=== PATIENT | female | born 1990 | race Caucasian/White ===

== ENCOUNTER → 2020-12-29 | Outpatient (REF) | payer OTHER ==
[2020-12-29 18:07] LABS: HEMATOCRIT 37.3 % (36.0-47.0); HEMOGLOBIN 12.1 g/dl (12.0-15.5); MEAN CORPUSCULAR HEMOGLOBIN 31.3 pg (27.0-33.0); MEAN CORPUSCULAR HGB CONC 32.4 g/dl (32.0-36.5); MEAN CORPUSCULAR VOLUME 96.4 fl (80.0-96.0); PLATELET COUNT, AUTOMATED 270 10^3/uL (150-450); RED BLOOD COUNT 3.87 10^6/uL (4.00-5.40); WHITE BLOOD COUNT 11.4 10^3/uL (4.0-10.0)
[2020-12-31 06:20] LABS: HIV 1&2 SCREEN CENTAUR NEGATIVE (NEGATIVE)
== END ==
LOC: M PLALAB 15:31
PROVIDERS: ATTEND Advanced Practice Midwife
DX: Z34.01 Encounter for supervision of normal first pregnancy, first trimester (principal)

== ENCOUNTER → 2021-02-25 | Outpatient (CLI) | payer OTHER ==
--- NOTE | 2021-02-26 08:14 | REP ---
INDICATION: ANATOMY COMPARISON: None. TECHNIQUE: Transabdominal obstetrical ultrasound with color Doppler evaluation. FINDINGS: Examination demonstrates a single live intrauterine in breech presentation. motion is identified by technologist. Placenta is noted anterior and grade 1 without evidence for placenta previa or abruption. Amniotic fluid volume is normal. Cervix measures 4.2 cm in length and appears closed.. Gestational age by LMP 19 weeks 3 days with HENRIQUE 07/19/2021. Gestational age by current measurements 19 weeks 2 days with HENRIQUE is 07/20/2021. FHR equals beats per minute. BPD: 4.5 cm at 19 weeks 3 days HC: 16.9 cm at 19 weeks 4 days AC: 13.8 cm at 19 weeks 2 days FL: 3.0 cm at 19 weeks 2 days HL: 2.9 cm at 19 weeks 2 days HC/AC: 1.22 Estimated weight 283 grams (37thpercentile). Anatomical assessment demonstrates normal structures including cranium, choroid plexus, cavum, cerebellum/posterior fossa, facial features, lungs, four-chamber heart/ventricular outflow tracts, diaphragm, stomach, cord insertion/three-vessel cord, kidneys/bladder, spine, and extremities. IMPRESSION: Single live intrauterine in breech presentation demonstrating appropriate interval growth. Anatomical assessment is complete and normal. <Electronically signed by Zack Angela > 02/26/21 [id number]
== END ==
LOC: M WHC 14:27
PROVIDERS: ATTEND Advanced Practice Midwife
DX: Z36.9 Encounter for antenatal screening, unspecified (principal); Z3A.19 19 weeks gestation of pregnancy

== ENCOUNTER → 2021-04-29 | Outpatient (CLI) | payer OTHER ==
[2021-04-29 13:55] LABS: HEMATOCRIT 35.4 % (36.0-47.0); HEMOGLOBIN 11.5 g/dl (12.0-15.5); MEAN CORPUSCULAR HEMOGLOBIN 32.8 pg (27.0-33.0); MEAN CORPUSCULAR HGB CONC 32.5 g/dl (32.0-36.5); MEAN CORPUSCULAR VOLUME 100.9 fl (80.0-96.0); PLATELET COUNT, AUTOMATED 239 10^3/uL (150-450); RED BLOOD COUNT 3.51 10^6/uL (4.00-5.40); WHITE BLOOD COUNT 9.6 10^3/uL (4.0-10.0)
== END ==
LOC: M PLALAB 08:40
PROVIDERS: ATTEND Advanced Practice Midwife
DX: Z34.02 Encounter for supervision of normal first pregnancy, second trimester (principal)

== ENCOUNTER → 2021-06-25 | Outpatient (REF) | payer OTHER ==
[~2021-06-25] MED LIST: PRENTAB9 PO
== END ==
LOC: M SFHCWAGY 16:52
PROVIDERS: ATTEND Advanced Practice Midwife
DX: Z34.03 Encounter for supervision of normal first pregnancy, third trimester (principal)

== ENCOUNTER 2021-07-23 21:34 | Inpatient (IN) | payer OTHER ==
[~2021-07-23] VITALS: Ht 167.6 cm; Wt 91.5 kg
[2021-07-23] MEDS ORDERED: PRENTAB9 PO (22:03)
[2021-07-23] MEDS ORDERED: HOME MED LIST COMPLETE! XX SCH (22:05)
[2021-07-23 22:26] LABS: HEMATOCRIT 36.4 % (36.0-47.0); HEMOGLOBIN 12.2 g/dl (12.0-15.5); MEAN CORPUSCULAR HEMOGLOBIN 32.8 pg (27.0-33.0); MEAN CORPUSCULAR HGB CONC 33.5 g/dl (32.0-36.5); MEAN CORPUSCULAR VOLUME 97.8 fl (80.0-96.0); PLATELET COUNT, AUTOMATED 243 10^3/uL (150-450); RED BLOOD COUNT 3.72 10^6/uL (4.00-5.40); WHITE BLOOD COUNT 11.3 10^3/uL (4.0-10.0)
[2021-07-23 22:37] VITALS: BP 120/71
[2021-07-23] MEDS ORDERED: OXYTOCIN DRIP 30 UNITS in IV 1 EA IV SCH (23:05)
[2021-07-23] MEDS ORDERED: CARBOPROST TROMETHAMINE 250 MCG/ML AMP IM PRN (23:05)
[2021-07-23] MEDS ORDERED: METHYLERGONOVINE MALEATE 0.2 MG/ML VIAL (J2210) IM PRN (23:05)
[2021-07-23] MEDS ORDERED: TRANEXAMIC ACID INJection 1,000 MG in NS 100 ML IV PRN (23:05)
--- NOTE | 2021-07-23 23:14 | HPEPDOC ---
Obstetrical History & Physical General Date of Admission Jul 23, 2021 at 21:34 History of Present Illness Patient is a 31-year-old G1, P0 at 40 weeks and 4 days who presents to labor and delivery for elective induction of labor. Patient currently denies any contractions leaking of fluid or vaginal bleeding. Reports positive movement Chief Complaint: Induction of labor Information Provided By: Patient Age: 31 : 1 Term: 0 Care Care: Good Care Dating Final EDC: Jul 19, 2021 Past Medical History Past Obstetrical History : Past Obstetrical History: Primgravida [employer] History: No pertinent history Past Medical History Surgical History: Denies/None Family History Significant Family History: No pertinent family hx Social History Family situation: Spouse/partner home Psychosocial History: No pertinent psych hx * Smoker: non-smoker Alcohol: Denies Drugs: denies Abuse Violence Screening Have you been hit/kicked/slapp: No Have you been sexually assault: No Imunizations Tdap status: current Influenza Status: needs Allergies Coded Allergies: No Known Allergies (Unverified , 07/23/21) Medications Scheduled No.137/Iron/Folic Acd ( Vitamin Tablet) 1 Each Tablet, 1 TAB PO DAILY Physical Examination Physical Examination GENERAL: Alert and oriented times three. BREAST: . ABDOMEN: Gravid and non-tender to touch. FETUS: Is vertex (VTX) by bedside ultrasound HEART RATE: Regular rate and rhythm. LUNGS: Clear to auscultation (CTA). EXTREMITIES: No edema. No clonus. SVE: 3/50/-2 Vital Signs/I&O Vital Signs Date Time Temp Pulse Resp B/P (MAP) Pulse Ox O2 Delivery O2 Flow Rate FiO2 07/23/21 22:37 98.3 80 18 120/71 (87) Laboratory Data 24H LABS Laboratory Tests 2 07/23/21 21:58: Serology Scanned Report Hepatitis B Testing 07/23/21 22:20: Nucleated Red Blood Cells % (auto) 0.0 CBC/BMP Laboratory Tests 07/23/21 22:20 Pertinent Laboratoy Data Blood Type: A+ RBC Antibody Screen: Negative HIV: Negative Hepatitis B: Negative Hepatitis C: Negative Rapid Plasma Reagin: Nonreactive Rubella: Immune Chlamydia/Gonorrhea: Negative Group B Streptococcus: Negative Glucose Tolerance Test: 84 Vaginal Examination Dilation: 3 cm Effacement: 50% Station: -2 Cervical Consistency: Medium Cervical Position: Middle Presentation: Cephalic presentation Assessment Heart Rate (FHR): 125 Variability: Moderate Accelerations: Positive Decelerations: None Tocometer Frequency: irregular Assessment/Plan Assessment 31-year-old (G) 1 para (P) 0 at 40+ 4 weeks Presents to Labor and Delivery (L&D) for elective induction of labor. Plan Admit and orient. Painting Instructor and consent. Diet: Clear liquid. Group B Streptococcus (GBS) [negative]. Labs and intravenous (IV) per unit protocol. Counseled on Pitocin and induction of labor (IOL). Anticipate [normal spontaneous delivery ()]. C-S as appropriate. JORGE GATES MD Jul 23, 2021 23:14
[2021-07-23] MEDS: LR 1,000 ML IV SCH (23:41)
[2021-07-23 23:45] VITALS: BP 118/68
[2021-07-24] VITALS (47 sets, daily range): BP systolic 95–158; BP diastolic 52–87
--- NOTE | 2021-07-24 07:06 | IPNPDOC ---
Obstetrical Progress Note Date of Service Jul 24, 2021 Subjective Pt starting to feel ctx, still comfortable at this time Objective Vital Signs Date Time Temp Pulse Resp B/P (MAP) Pulse Ox O2 Delivery O2 Flow Rate FiO2 07/24/21 07:00 68 18 127/81 (96) 07/24/21 03:33 98.4 Assessment Heart Rate (FHR): 120 Variability: Moderate Accelerations: Positive Decelerations: None Heart Rate Tracing: Category I Tocometer Contractions: Yes Frequency: every 1-3 min. Sterile Vaginal Examination Dilation: 4 cm Effacement (%): 50% Station: -1 Cervical Consistency: Soft Cervical Position: Anterior Postion/Presentation: Cephalic presentation Assessment and Plan Age: 31 : 1 Term: 0 Status: Reassuring Group B Streptococcus: Negative Anticipate: Vaginal Delivery (AROM for clear at this time) JOREG GATES MD Jul 24, 2021 07:06
[2021-07-24] MEDS ORDERED: FENTANYL 2MCG/ML ROPIVACAINE 0.2% IN 0.9% NACL 100ML IVBAG As Ordered ONE (07:12)
[2021-07-24] MEDS: LR 1,000 ML IV SCH (07:33)
[2021-07-24] MEDS ORDERED: ePHEDrine SULFATE 25 MG/5 ML(5MG/ML) SYRINGE IV PRN (08:05)
[2021-07-24] MEDS ORDERED: FENTANYL/ROPIVACAINE/NACL BAG 100 ML EPIDURAL SCH (08:05)
[2021-07-24] MEDS ORDERED: NALOXONE INJ 0.4MG/1ML VIAL (J2310 PER 1MG) IV PRN (08:05)
[2021-07-24] MEDS ORDERED: EPIDURAL COMMENT XX SCH (08:05)
[2021-07-24] MEDS ORDERED: EPIDURAL/PCA KEYS XX PRN (08:05)
[2021-07-24] MEDS ORDERED: ONDANSETRON 4MG/2ML VIAL IV PRN (08:05)
[2021-07-24] MEDS ORDERED: diphenhydrAMINE 50MG/ML VIAL (J1200) IV PRN (08:05)
[2021-07-24] MEDS ORDERED: LACTATED RINGER'S 1000 ML IV PRN (08:05)
[2021-07-24] MEDS ORDERED: REFRIGERATOR IV KEYS XX PRN (08:05)
[2021-07-24] MEDS ORDERED: MOM 30ML SUSPENSION UDC PO PRN (13:00)
[2021-07-24] MEDS ORDERED: IBUPROFEN 600MG TAB PO PRN (13:00)
[2021-07-24] MEDS ORDERED: MEASLES,MUMPS,RUBELLA VACCINE INJ (MMR-II) (90707) SC SCH (13:00)
[2021-07-24] MEDS ORDERED: ACETAMINOPHEN TAB 650MG DOSE (2X325MG) PO PRN (13:00)
[2021-07-24] MEDS ORDERED: RHOGAM 300 MCG (1500 IU) INJ (J2790) IM SCH (13:00)
[2021-07-24] MEDS ORDERED: METHYLERGONOVINE MALEATE 0.2 MG TAB PO PRN (13:00)
[2021-07-24] MEDS ORDERED: ANUSOL HC CREAM 30GM TOP PRN (13:00)
--- NOTE | 2021-07-24 13:05 | DNPDOC ---
[facility] Delivery Note Delivery Note DATE OF DELIVERY: 07/24/21 PREDELIVERY DIAGNOSIS: 40-5/7 weeks' gestation and induction of labor. POST DELIVERY DIAGNOSIS: Delivered. PROCEDURE: Spontaneous vaginal delivery. LOCAL HAZMAT DRIVER: Saud Maddox CNM, SUSAN ANESTHESIA: epidural. ESTIMATED BLOOD LOSS: 250 mL. FINDINGS: 7 pound 3 ounce; 3260 grams; female , Score 9/9, nuchal cord times 1 loose. DELIVERY SUMMARY: Sara is a 31-year-old female who is now a who presented to L&D for an elective induction of labor at 40.4 weeks gestation. She received IV Pitocin for induction of labor and requested and epidural for pain management. She progressed to fully dilated at 1157 and pushed to a living female in the LOAN position with restitution to ROT. A nuchal cord was noted and reduced. The anterior shoulder delivered with ease and the corpus immediately followed. The baby was placed [id number] active and crying. The cord was clamped after pulsation ceased and cut by the FOB. A 3 vessel cord was noted. The placenta delivered spontaneous and intact at 1227. Uterine hemostasis was achieved via rapid infusion of IV Pitocin and fundal massage. The vagina, cervix and perineum was inspected and found to have a left vaginal wall tear and left labial laceration. Both were repaired with a 3.[address]-1. Mom plans to breastfeed and they are naming their daughter Yadira. Both mom and baby are in stable condition. All counts of instruments and sponges are correct. SAUD MADDOX CNM Jul 24, 2021 13:05
[2021-07-24] MEDS: IBUPROFEN 800 MG TAB PO PRN (16:27)
[2021-07-24] MEDS: DIBUCAINE 1% OINTMENT 30GM TOP PRN (16:28)
[2021-07-24] MEDS: DOCUSATE SODIUM 100MG CAPSULE PO PRN (20:25)
[2021-07-24] MEDS: ACETAMINOPHEN 500 MG TAB PO PRN (20:26)
[2021-07-25] MEDS: IBUPROFEN 800 MG TAB PO PRN ×2 (00:35→09:32)
[2021-07-25] MEDS: ACETAMINOPHEN 500 MG TAB PO PRN ×3 (04:40→20:18)
[2021-07-25 06:04] VITALS: BP 119/64
[2021-07-25] MEDS ORDERED: INFLUENZA QUADRIVALENT PF VACCINE 0.5ML SYRINGE IM ONE (09:00)
[2021-07-25] MEDS: PRENATAL VITAMINS CHEWABLE TABLET PO SCH (09:14)
[2021-07-25 18:00] VITALS: BP 141/77
[2021-07-25] MEDS: DOCUSATE SODIUM 100MG CAPSULE PO PRN (19:57)
[2021-07-26] MEDS: DIBUCAINE 1% OINTMENT 30GM TOP PRN (02:26)
[2021-07-26] MEDS: ACETAMINOPHEN 500 MG TAB PO PRN ×2 (02:31→14:16)
[2021-07-26 05:05] VITALS: BP 133/76
[2021-07-26] MEDS: PRENATAL VITAMINS CHEWABLE TABLET PO SCH (08:27)
[2021-07-26] MEDS: IBUPROFEN 800 MG TAB PO PRN (08:27)
== END 2021-07-26 14:33 | disposition home or self-care (01) | DRG 807 ==
LOC: M LDI 21:34 → M OBS 07-24 15:48
PROVIDERS: ADMIT Obstetrics & Gynecology; ATTEND Advanced Practice Midwife
PROC: 3E033VJ Introduction of Other Hormone into Peripheral Vein, Percutaneous Approach (ICD-10-PCS; 2021-07-23)
PROC: 10E0XZZ Delivery of Products of Conception, External Approach (ICD-10-PCS; principal; 2021-07-24)
PROC: 0HQ9XZZ Repair Perineum Skin, External Approach (ICD-10-PCS; 2021-07-24)
DX: O48.0 Post-term pregnancy (principal); Z37.0 Single live birth; Z3A.40 40 weeks gestation of pregnancy; O69.81X0 Labor and delivery complicated by cord around neck, without compression, not applicable or unspecified; O70.0 First degree perineal laceration during delivery

== ENCOUNTER → 2022-11-15 | Outpatient (REF) | payer BC | LOC: M SFHCWAGY 12:51 | PROVIDERS: ATTEND Advanced Practice Midwife | DX: Z12.4 Encounter for screening for malignant neoplasm of cervix (principal) ==

== ENCOUNTER → 2023-11-02 | Outpatient (CLI) | payer BC ==
[2023-11-02 12:54] LABS: HEMATOCRIT 38.1 % (36.0-47.0); HEMOGLOBIN 12.9 g/dl (12.0-15.5); MEAN CORPUSCULAR HEMOGLOBIN 32.7 pg (27.0-33.0); MEAN CORPUSCULAR HGB CONC 33.9 g/dl (32.0-36.5); MEAN CORPUSCULAR VOLUME 96.7 fl (80.0-96.0); PLATELET COUNT, AUTOMATED 267 10^3/uL (150-450); RED BLOOD COUNT 3.94 10^6/uL (4.00-5.40); WHITE BLOOD COUNT 8.4 10^3/uL (4.0-10.0)
[2023-11-02 13:52] LABS: HIV 1&2 SCREEN NEGATIVE (NEGATIVE)
[2023-11-02 14:00] LABS: HEPATITIS C VIRUS ABY INDEX < 0.02 INDEX (<0.8)
[2023-11-02 14:21] LABS: CHLAMYDIA DNA AMPLIFICATION NEGATIVE (NEGATIVE); GC DNA AMPLIFICATION NEGATIVE (NEGATIVE)
== END ==
LOC: M PLALAB 10:39
PROVIDERS: ATTEND Advanced Practice Midwife
DX: O09.521 Supervision of elderly multigravida, first trimester (principal); Z3A.00 Weeks of gestation of pregnancy not specified

== ENCOUNTER → 2023-12-15 | Outpatient (REF) | payer BC | LOC: M LABDRAWP 14:30 | PROVIDERS: ATTEND Advanced Practice Midwife | DX: O09.521 Supervision of elderly multigravida, first trimester (principal) ==

== ENCOUNTER → 2024-01-04 | Outpatient (CLI) | payer BC | LOC: M WHC 09:55 | PROVIDERS: ATTEND Obstetrics & Gynecology | DX: Z34.92 Encounter for supervision of normal pregnancy, unspecified, second trimester (principal); Z3A.19 19 weeks gestation of pregnancy ==

== ENCOUNTER → 2024-02-03 | Outpatient (CLI) | payer BC | LOC: M WHC 15:17 | PROVIDERS: ATTEND Specialist | DX: Z34.82 Encounter for supervision of other normal pregnancy, second trimester (principal) ==

== ENCOUNTER → 2024-03-20 | Outpatient (CLI) | payer BC ==
[2024-03-20 14:02] LABS: HEMATOCRIT 36.1 % (36.0-47.0); HEMOGLOBIN 11.8 g/dl (12.0-15.5); MEAN CORPUSCULAR HEMOGLOBIN 32.8 pg (27.0-33.0); MEAN CORPUSCULAR HGB CONC 32.7 g/dl (32.0-36.5); MEAN CORPUSCULAR VOLUME 100.3 fl (80.0-96.0); PLATELET COUNT, AUTOMATED 258 10^3/uL (150-450); WHITE BLOOD COUNT 10.7 10^3/uL (4.0-10.0)
== END ==
LOC: M PLALAB 09:56
PROVIDERS: ATTEND Advanced Practice Midwife
DX: O09.522 Supervision of elderly multigravida, second trimester (principal); Z3A.00 Weeks of gestation of pregnancy not specified

== ENCOUNTER → 2024-05-02 | Outpatient (REF) | payer BC | LOC: M PLALAB 14:10 | PROVIDERS: ATTEND Obstetrics & Gynecology | DX: Z34.83 Encounter for supervision of other normal pregnancy, third trimester (principal); Z3A.36 36 weeks gestation of pregnancy ==

== ENCOUNTER 2024-05-30 12:30 | Inpatient (IN) | payer BC ==
[2024-05-30] VITALS (7 sets, daily range): BP systolic 117–129; BP diastolic 63–79
[~2024-05-30] VITALS: Ht 167.6 cm; Wt 94.7 kg
[2024-05-30] MEDS ORDERED: HOME MED LIST COMPLETE! XX SCH (13:00)
[2024-05-30] MEDS ORDERED: OXYTOCIN DRIP 30 UNITS in IV 1 EA IV PRN (14:45)
[2024-05-30] MEDS ORDERED: OXYTOCIN INJ 10UNITS/ML 1ML VIAL IM PRN (14:45)
[2024-05-30] MEDS ORDERED: LIDOCAINE 1% MDV 20ML VIAL INFIL PRN (14:45)
[2024-05-30] MEDS ORDERED: CARBOPROST TROMETHAMINE 250 MCG/ML AMP IM PRN (14:45)
[2024-05-30] MEDS ORDERED: METHYLERGONOVINE MALEATE 0.2MG/ML 1ML VIAL IM PRN (14:45)
[2024-05-30] MEDS: miSOPROStol 50MCG 1/2 TABLET PO SCH (14:55)
[2024-05-30 15:25] LABS: HEMATOCRIT 37.1 % (36.0-47.0); HEMOGLOBIN 12.3 g/dl (12.0-15.5); MEAN CORPUSCULAR HEMOGLOBIN 32.7 pg (27.0-33.0); MEAN CORPUSCULAR HGB CONC 33.2 g/dl (32.0-36.5); MEAN CORPUSCULAR VOLUME 98.7 fl (80.0-96.0); PLATELET COUNT, AUTOMATED 268 10^3/uL (150-450); RED BLOOD COUNT 3.76 10^6/uL (4.00-5.40); WHITE BLOOD COUNT 11.1 10^3/uL (4.0-10.0)
[2024-05-30 16:32] LABS: HEPATITIS C VIRUS ABY INDEX 0.02 INDEX (<0.8)
[2024-05-30] MEDS: LR 1,000 ML IV SCH (23:04)
[2024-05-30] MEDS: OXYTOCIN DRIP 30 UNITS in IV 1 EA IV SCH (23:04)
[2024-05-30] MEDS ORDERED: ePHEDrine SULFATE 25 MG/5 ML(5MG/ML) SYRINGE IVP PRN (23:55)
[2024-05-30] MEDS ORDERED: ONDANSETRON 4MG 2ML VIAL IV PRN (23:55)
[2024-05-30] MEDS ORDERED: diphenhydrAMINE 50MG/ML VIAL IV PRN (23:55)
[2024-05-30] MEDS ORDERED: NALOXONE INJ 0.4MG/1ML VIAL IV PRN (23:55)
[2024-05-30] MEDS ORDERED: LR 500 ML IV PRN (23:55)
[2024-05-30] MEDS ORDERED: EPIDURAL/PCA KEYS XX PRN (23:55)
[2024-05-31] VITALS (26 sets, daily range): BP systolic 105–147; BP diastolic 52–84; O2SAT 98–99
[2024-05-31] MEDS: FENTANYL/ROPIVACAINE/NACL BAG 100 ML EPIDURAL SCH (00:23)
[2024-05-31] MEDS ORDERED: DIBUCAINE 1% OINTMENT 30GM TOP PRN (03:55)
[2024-05-31] MEDS ORDERED: RHO(D) IMMUNE GLOBULIN/MALTOSE 500MCG(2500IU)/2.2ML VIAL (WINRHO) IM SCH (03:55)
[2024-05-31] MEDS ORDERED: ACETAMINOPHEN TAB 650MG DOSE (2X325MG) PO PRN (03:55)
[2024-05-31] MEDS ORDERED: IBUPROFEN 600MG TAB PO PRN (03:55)
[2024-05-31] MEDS ORDERED: METHYLERGONOVINE MALEATE 0.2 MG TAB PO PRN (03:55)
[2024-05-31] MEDS: IBUPROFEN 800 MG TAB PO PRN (07:42)
[2024-05-31] MEDS: PRENATAL VITAMINS CHEWABLE TABLET PO SCH (07:42)
[2024-05-31] MEDS: ACETAMINOPHEN 500 MG TAB PO PRN (10:57)
[2024-06-01] MEDS: DOCUSATE SODIUM 100MG CAPSULE PO PRN (01:29)
[2024-06-01 05:50] VITALS: BP 118/66; O2SAT 97
[2024-06-02] MEDS ORDERED: MEASLES,MUMPS,RUBELLA VACCINE INJ (MMR-II) SC.IMMUN ONE (09:00)
== END 2024-06-01 13:40 | disposition home or self-care (01) | DRG 560 ==
LOC: M LDI 12:30 → M OBS 05-31 06:00
PROVIDERS: ADMIT Advanced Practice Midwife; ATTEND Advanced Practice Midwife
PROC: 3E0P7GC Introduction of Other Therapeutic Substance into Female Reproductive, Via Natural or Artificial Opening (ICD-10-PCS; 2024-05-30)
PROC: 10E0XZZ Delivery of Products of Conception, External Approach (ICD-10-PCS; principal; 2024-05-31)
PROC: 0HQ9XZZ Repair Perineum Skin, External Approach (ICD-10-PCS; 2024-05-31)
DX: O48.0 Post-term pregnancy (principal); O66.0 Obstructed labor due to shoulder dystocia; Z3A.40 40 weeks gestation of pregnancy; O69.81X0 Labor and delivery complicated by cord around neck, without compression, not applicable or unspecified; O70.0 First degree perineal laceration during delivery; Z37.0 Single live birth